=== PATIENT | female | born 1975 | race Caucasian/White ===

== ENCOUNTER → 2017-02-24 | Outpatient (CLI) | payer OTHER ==
--- NOTE | 2017-02-24 14:36 | RAD ---
DATE: 02/24/2017 EXAM: BREAST BILATERAL, DIGITAL DIAGNOSTIC BILATERAL HISTORY: Palpable lumps in the axillary regions of both breasts bilaterally. COMPARISON: None. This study was interpreted with the benefit of Computerized Aided Detection (CAD). The breast parenchyma is heterogeneously dense, which could reduce sensitivity of mammography. Breast parenchyma level C. FINDINGS: Digital MLO and CC mammograms of both breasts were obtained. Radiopaque markers were placed in the areas where the patient feels palpable abnormalities. This is patient's baseline mammogram. The breast parenchyma is heterogeneously dense which can obscure a lesion on mammography (breast density code C). No spiculated mass is seen. No malignant appearing calcification or area of architectural distortion is noted. No abnormality is seen in the area where the patient's feels a palpable abnormality within the axillary regions of both breasts. A real-time ultrasound examination of the axillary regions of both breasts in the area where the patient feels a palpable abnormality was performed. Multiple images were obtained. No abnormal solid or cystic mass is seen. A 9 mm lymph node is seen within the right axilla. A 1.4 cm lymph node is seen within the left axilla. These have a benign appearance. IMPRESSION: BI-RADS Category 1, negative. There is no mammographic evidence of malignancy. Routine yearly screening mammography is recommended for follow-up. BI-RADS CATEGORY: 1 NEGATIVE RECOMMENDED FOLLOW-UP: 12M 12 MONTH FOLLOW-UP PQRS compliance statement: Patient information was entered into a reminder system with a target due date 02/24/2018 for the next mammogram. Mammography is a sensitive method for finding small breast cancers, but it does not detect them all and is not a substitute for careful clinical examination. A negative mammogram does not negate a clinically suspicious finding and should not result in delay in biopsying a clinically suspicious abnormality. "Our facility is accredited by the [employer] Mammography Program."
== END | disposition home or self-care (01) ==
LOC: MAMMO 12:18
PROVIDERS: ATTEND Family Medicine
DX: N63 Unspecified lump in breast (principal)
CPT/HCPCS: 76641; G0204; 77066

== ENCOUNTER → 2017-08-10 | Outpatient (CLI) | payer OTHER ==
--- NOTE | 2017-08-10 11:18 | RAD ---
Exam : Carotid Duplex with Grayscale Ultrasound and Spectral and Color Doppler Analysis: Clinical Indications: Carotid stenosis. Comparison study: None available. PQRS Compliance Statement - Stenosis calculations for CT, MR and conventional angiography are based upon measurement of the distal ICA diameter in accordance with the NASCET methodology. Stenosis calculations for carotid ultrasound studies are derived from validated velocity criteria which are known to correlate with the NASCET methodology. Findings: The common, internal and external carotid arteries were examined by grayscale, color and spectral Doppler ultrasound. There is no evidence of atherosclerotic disease or significant stenosis in the visualized vessels. Flow in both vertebral arteries was antegrade and normal. The following are the velocities and ratios in the carotid arteries on both sides: RIGHT ICA PV: 89cm/sec RIGHT CCA PV: 91cm/sec RIGHT ICA ED: 40cm/sec RIGHT IC/CCPV: Less than 1 RIGHT VERTEBRAL: antegrade flow RIGHT % STENOSIS: [Less than 50%] LEFT ICA PV: 88 cm/sec LEFT CCA PV: 118cm/sec LEFT ICA ED: 39cm/sec LEFT IC/CCPV: Less than 1 LEFT VERTEBRAL: antegrade flow LEFT % STENOSIS: [Less than 50%] <50% ICA Stenosis: PSV < 125cm/s (EDV < 40cm/s; SVR < 2.0) 50-69% ICA Stenosis: PSV < 125-229cm/s (EDV 40-99cm/s; SVR 2.0-3.9) >70% ICA Stenosis: PSV > 230cm/s (EDV >100cm/s; SVR >4.0) Impression: Normal bilateral carotid and vertebral artery spectral and color Doppler analysis exam.
--- NOTE | 2017-08-10 11:33 | RAD ---
Ultrasound soft tissue neck 08/10/2017 Clinical indication: Left neck swelling. Comparison: None. Findings: Limited grayscale and color Doppler images of the left neck at the area of patient reported swelling. No suspicious focal mass or fluid collection. Impression: No suspicious mass or fluid collection at the patient reported area of palpable abnormality at the left neck.
--- NOTE | 2017-08-10 12:34 | RAD ---
Thyroid ultrasound, 08/10/2017: History: Left-sided neck swelling The right lobe of the gland measures 5.6 x 1.6 x 1.5 cm, while the left lobe of the gland measures 5.2 x 1.5 x 1.1 cm. There is a tiny 4 mm, smooth, partially cystic nodule in the posterior aspect of the upper pole of the left lobe of the gland. There is also a 3 mm smooth, slightly hypoechoic nodule in the lateral aspect of the upper pole of the left lobe of the gland. There is an 8 x 8 x 5 mm hypoechoic nodule in the posterolateral aspect of the right lobe of the gland just superior to its midpoint. Its margins are smooth. There appear to be tiny cystic components. No calcifications are seen. It is wider than tall. No highly suspicious features are evident. No other thyroid abnormality is seen. IMPRESSION: Several small thyroid nodules are noted within the largest nodule measuring 8 mm and lying in the right lobe. There are no highly suspicious features to warrant biopsy. Sonographic follow-up is suggested to establish stability.
== END | disposition home or self-care (01) ==
LOC: US 07:53
PROVIDERS: ATTEND Family Medicine
DX: E04.2 Nontoxic multinodular goiter (principal); R42 Dizziness and giddiness
CPT/HCPCS: 76536; 93880